=== PATIENT | male | born 2005 | race Caucasian/White ===

== ENCOUNTER 2024-12-25 00:52 | Emergency (ER) | payer SELFPAY ==
[~2024-12-25] VITALS: Ht 172.7 cm; Wt 72.1 kg
[2024-12-25 00:57] VITALS: BP 162/97; TEMP 98.7; O2SAT 99
[2024-12-25] MEDS ORDERED: DIPH-435 PO (01:01)
== END 2024-12-25 03:30 | disposition left against medical advice (07) ==
LOC: M ED 00:52
DX: Z53.21 Procedure and treatment not carried out due to patient leaving prior to being seen by health care provider (principal)